=== PATIENT | female | born 2005 ===

== ENCOUNTER 2024-08-08 02:25 | Emergency (ER) | payer BC ==
[2024-08-08] MEDS: Amoxicillin 875 MG Tab PO ONE (02:49)
[2024-08-08] MEDS: Take Home: Amoxicillin 875 MG Tab, 2 Tab Pack PO ONE (02:57)
== END 2024-08-08 02:58 | disposition home or self-care (01) ==
LOC: VM.ED 02:25
DX: H66.91 Otitis media, unspecified, right ear (principal); Z79.899 Other long term (current) drug therapy
CPT/HCPCS: 99282; 99283; A9270-GY